=== PATIENT | female | born 1990 | race American Indian/Alaskan Native ===

== ENCOUNTER 2020-03-10 15:02 | Inpatient (IN) | payer OTHER ==
[~2020-03-10] VITALS: Ht 170.2 cm; Wt 3.2 kg
[2020-03-10] MEDS ORDERED: PRENATAL CAPLE1 EAC1 PO (17:13)
== END 2020-03-14 13:19 | disposition home or self-care (01) | DRG 788 ==
LOC: OBS/DEL 15:02 → OB/GYN 17:48 → LDR 17:48 → OBS/DEL 17:48 → LDR 20:32 → O/R 03-11 14:08 → OB/GYN 03-11 16:37
PROVIDERS: ADMIT Obstetrics & Gynecology
PROC: 4A1HXFZ Monitoring of Products of Conception, Cardiac Rhythm, External Approach (ICD-10-PCS; 2020-03-11)
PROC: 3E033VJ Introduction of Other Hormone into Peripheral Vein, Percutaneous Approach (ICD-10-PCS; 2020-03-11)
PROC: 10D00Z1 Extraction of Products of Conception, Low, Open Approach (ICD-10-PCS; principal; 2020-03-11 14:00)
DX: O41.03X0 Oligohydramnios, third trimester, not applicable or unspecified (principal); O62.1 Secondary uterine inertia; O99.824 Streptococcus B carrier state complicating childbirth; Z3A.38 38 weeks gestation of pregnancy; Z37.0 Single live birth